=== PATIENT | male | born 1995 | race American Indian/Alaskan Native ===

== ENCOUNTER 2020-08-28 08:39 | Emergency (ER) | payer SELFPAY ==
[2020-08-28 08:45] VITALS: BP 135/81
--- NOTE | 2020-08-28 09:50 | Emergency Department Report ---
Chief Complaint: Upper Respiratory Infection Stated Complaint: SINUS INFECTION Time Seen by Provider: 08/28/20 09:10 - HPI History of Present Illness: 25-year-old -[place] male patient presents with complaints of nasal congestion x2 months. He denies any facial pain/swelling, ear pain, cough, fever/chills/sweats, or history of recurrent sinusitis. Patient states he tried one of his mom's Singulair pills and his symptoms improved. He denies trying any other OTC medications. No sinus tenderness to palpation noted on exam. Turbinates are blue and swollen on exam. Vitals are normal, patient is well-appearing, he is stable for outpatient treatment. Recommend [id number] loratadine and Flonase. Discussed signs and symptoms that should prompt immediate return to the emergency department in detail with patient who verbalizes understanding. Patient to follow-up with primary care provider in 3 to 5 days. - Exam Vital Signs: Vital Signs 08/28/20 08:43 Temperature 98.2 F Pulse Rate 88 Respiratory 16 Rate Blood Pressure 135/81 O2 Sat by Pulse 100 Oximetry MSE screening note: Focused history and physical exam performed. Due to findings the following was ordered: ED Disposition for MSE Clinical Impression: Nasal congestion Disposition: Z-07 MED SCREENING EXAM-LEFT Is pt being admited?: No Condition: Stable Additional Instructions: Please purchase [id number] loratadine (Claritin) and fluticasone (Flonase) and use daily as needed for your nasal congestion Referrals: [facility] [Provider Group] - 3-5 Days ED Review of Systems ROS: Stated complaint: SINUS INFECTION Other details as noted in HPI Constitutional: denies: diaphoresis, fever, malaise, weakness ENT: congestion. denies: ear pain, throat pain, dental pain Respiratory: denies: cough, shortness of breath Cardiovascular: denies: chest pain Endocrine: denies: excessive sweating Skin: denies: change in color Hematological/Lymphatic: denies: swollen glands ED Physical Exam - General Limitations: No Limitations General appearance: alert, in no apparent distress - Head Head exam: Present: atraumatic, normocephalic - Eye Eye exam: Present: normal appearance - ENT ENT exam: Present: normal exam, normal orophraynx - Expanded ENT Exam Expanded Mouth exam: Present: normal external inspection - Neck Neck exam: Present: normal inspection, full ROM. Absent: lymphadenopathy - Respiratory Respiratory exam: Present: normal lung sounds bilaterally. Absent: respiratory distress - Cardiovascular Cardiovascular Exam: Present: regular rate, normal rhythm - Neurological Exam Neurological exam: Present: alert, oriented X3, normal gait - Psychiatric Psychiatric exam: Present: normal affect, normal mood - Skin Skin exam: Present: warm, dry, intact, normal color. Absent: rash
== END 2020-08-28 10:08 | disposition left against medical advice (07) ==
LOC: ED 08:39
DX: R09.81 Nasal congestion (principal); Z53.21 Procedure and treatment not carried out due to patient leaving prior to being seen by health care provider